=== PATIENT | female | born 1985 ===

== ENCOUNTER 2019-11-17 20:39 | Outpatient (CLI) | payer OTHER ==
[2019-11-17] MEDS ORDERED: PRENATAL TABLE1 EAC1 PO (20:44)
== END 2019-11-18 14:01 | disposition home or self-care (01) ==
LOC: OBS/DEL 20:39
DX: O60.03 Preterm labor without delivery, third trimester (principal); O35.8XX0 Maternal care for other (suspected) fetal abnormality and damage, not applicable or unspecified; O26.893 Other specified pregnancy related conditions, third trimester; R10.2 Pelvic and perineal pain; O99.013 Anemia complicating pregnancy, third trimester; D64.89 Other specified anemias

== ENCOUNTER 2020-03-06 06:42 | Inpatient (IN) | payer OTHER ==
[~2020-03-06] VITALS: Ht 160 cm; Wt 72.6 kg
[~2020-03-06 06:42] MED LIST: PRENATAL TABLE1 EAC1 PO
[2020-03-06] MEDS ORDERED: IRON236 MG PO (09:03)
[2020-03-06] MEDS ORDERED: NASAL MIST126 ML (09:03)
== END 2020-03-08 18:43 | disposition home or self-care (01) | DRG 807 ==
LOC: LDR 06:42 → OB/GYN 06:42
PROVIDERS: ADMIT Specialist
PROC: 10E0XZZ Delivery of Products of Conception, External Approach (ICD-10-PCS; principal; 2020-03-06)
PROC: 3E033VJ Introduction of Other Hormone into Peripheral Vein, Percutaneous Approach (ICD-10-PCS; 2020-03-06)
PROC: 4A1HXFZ Monitoring of Products of Conception, Cardiac Rhythm, External Approach (ICD-10-PCS; 2020-03-06)
PROC: 10907ZC Drainage of Amniotic Fluid, Therapeutic from Products of Conception, Via Natural or Artificial Opening (ICD-10-PCS; 2020-03-06)
PROC: 0HQ9XZZ Repair Perineum Skin, External Approach (ICD-10-PCS; 2020-03-06)
DX: O99.824 Streptococcus B carrier state complicating childbirth (principal); Z37.0 Single live birth; O99.02 Anemia complicating childbirth; D64.9 Anemia, unspecified; O70.0 First degree perineal laceration during delivery; Z3A.40 40 weeks gestation of pregnancy

== ENCOUNTER → 2025-10-28 10:15 | Outpatient (CLI) | payer OTHER ==
[~2025-10-28 10:15] MED LIST changes: +IRON236 MG PO; +NASAL MIST126 ML
== END | disposition home or self-care (01) ==
LOC: PRENATAL 10:15
PROVIDERS: ATTEND Obstetrics & Gynecology Maternal & Fetal Medicine
DX: O36.80X0 Pregnancy with inconclusive fetal viability, not applicable or unspecified (principal); Z36.82 Encounter for antenatal screening for nuchal translucency; Z14.8 Genetic carrier of other disease; O09.521 Supervision of elderly multigravida, first trimester; Z3A.15 15 weeks gestation of pregnancy